=== PATIENT | male | born 1950 | race Caucasian/White ===

== ENCOUNTER 2024-02-05 17:10 | Inpatient (IN) | payer MEDICARE, OTHER ==
[~2024-02-05] VITALS: Ht 167.6 cm; Wt 73.5 kg
[2024-02-05 17:17] VITALS: BP 135/75; PULSE 95; RESP 20; TEMP 99.2; O2SAT 98
[2024-02-05 18:12] LABS: HEMATOCRIT 42.1 % (36-52); HEMOGLOBIN 14.1 g/dL (12.0-18.0); MEAN CORPUSCULAR HEMOGLOBIN 30 pg (27-31); MEAN CORPUSCULAR HGB CONC 34 g/dL (33-37); MEAN CORPUSCULAR VOLUME 89.7 fL (80-94); PLATELET COUNT (AUTO) 184 K/uL (140-450); RED CELL DISTRIBUTION WIDTH 13.8 % (11.6-13.7); WHITE BLOOD COUNT (AUTO) 11.6 K/uL (4.8-10.8)
[2024-02-05 18:18] LABS: APPEARANCE,URINE CLEAR (CLEAR); BILIRUBIN,URINE 2+ (NEGATIVE); BLOOD, URINE NEGATIVE (NEGATIVE); COLOR,URINE YELLOW (YELLOW); LEUKOCYTE ESTERASE ,URINE TRACE (NEGATIVE); NITRITE, URINE NEGATIVE (NEGATIVE); PROTEIN,URINE TRACE (NEGATIVE); UGLUCOSE NEGATIVE (NEGATIVE); UROBILINOGEN,URINE >=8.0 EU/dL (0.2 - 1)
[2024-02-05 18:29] LABS: ALANINE AMINOTRANSFERASE 347 U/L (12-78); ALBUMIN 3.6 g/dL (3.4-5.0); ALKALINE PHOSPHATASE 269 U/L (50-136); ANION GAP 13.7 (8-16); ASPARTATE AMINOTRANSFERASE 389 U/L (15-37); CALCIUM 8.8 mg/dL (8.5-10.1); CARBON DIOXIDE 24.4 mmol/L (21-32); CHLORIDE 100 mmol/L (98-107); CREATININE 1.6 mg/dL (0.6-1.3); GLUCOSE 107 mg/dL (74-106); LIPASE 54 U/L (16-77); POTASSIUM 4.1 mmol/L (3.5-5.1); SODIUM SERUM 134 mmol/L (136-145); TOTAL BILIRUBIN 2.3 mg/dL (0.0-1.0); TOTAL PROTEIN, SERUM 7.1 g/dL (6.4-8.2); UREA NITROGEN, BLOOD 18 mg/dL (7-18)
[2024-02-05 18:33] LABS: ICTOTEST NEGATIVE (NEGATIVE)
[2024-02-05 18:58] LABS: EOSINOPHILS % (MANUAL) 1 % (0-4); LYMPHOCYTES % (MANUAL) 6 % (20-46); MONOCYTES % (MANUAL) 5 % (5-12)
[2024-02-05 18:59] LABS: ANISOCYTOSIS 1+; PLATELET ESTIMATE GIANT PLATELET SEEN; POIKILOCYTOSIS 1+
[2024-02-05] MEDS: NACL 0.9% 1,000 ML IV ONE (20:56)
[2024-02-05] MEDS: KETOROLAC 30 MG/ML VIAL IVP ONE ×2 (20:57→22:04)
[2024-02-05] MEDS ORDERED: ONDANSETRON 4 MG/2 ML VIAL IVP PRN (22:20)
[2024-02-05] MEDS ORDERED: MORPHINE SULFATE 2 MG/ML SYR IVP PRN (22:20)
[2024-02-05 22:50] VITALS: PULSE 65; RESP 18; O2SAT 97
[2024-02-05] MEDS: DEXT 5% /NACL 0.9% 1,000 ML IV SCH (23:19)
[2024-02-06] VITALS: BP 128/73; PULSE 65; RESP 18; TEMP 97.2; O2SAT 97
[2024-02-06 04:00] VITALS: BP 125/71; PULSE 68; RESP 18; TEMP 97.1; O2SAT 97
[2024-02-06 06:46] LABS: BASOPHILS % (AUTO) 0.3 % (0.0-2.0); EOSINOPHILS # (AUTO) 0.1 K/uL (0-0.4); EOSINOPHILS % (AUTO) 0.7 % (0.0-4.0); HEMATOCRIT 38.8 % (36-52); HEMOGLOBIN 13.4 g/dL (12.0-18.0); LYMPHOCYTES # (AUTO) 1.4 K/uL (2.0-11.5); LYMPHOCYTES % (AUTO) 12.6 % (20.5-51.1); MEAN CORPUSCULAR HEMOGLOBIN 31 pg (27-31); MEAN CORPUSCULAR HGB CONC 35 g/dL (33-37); MONOCYTES # (AUTO) 1.1 K/uL (0.8-1.0); MONOCYTES % (AUTO) 10.6 % (1.7-9.3); NEUTROPHILS # (AUTO) 8.2 K/uL (1.8-7.7); NEUTROPHILS % (AUTO) 75.8 % (42.2-75.2); PLATELET COUNT (AUTO) 150 K/uL (140-450); RED BLOOD CELL COUNT(AUTO) 4.36 MIL/uL (4.20-6.10); RED CELL DISTRIBUTION WIDTH 13.7 % (11.6-13.7); WHITE BLOOD COUNT (AUTO) 10.8 K/uL (4.8-10.8)
[2024-02-06 07:27] LABS: CALCIUM 7.9 mg/dL (8.5-10.1); CARBON DIOXIDE 23.8 mmol/L (21-32); CHLORIDE 104 mmol/L (98-107); CREATININE 1.5 mg/dL (0.6-1.3); GLUCOSE 91 mg/dL (74-106); POTASSIUM 3.8 mmol/L (3.5-5.1); SODIUM SERUM 137 mmol/L (136-145); UREA NITROGEN, BLOOD 17 mg/dL (7-18)
[2024-02-06 07:28] LABS: ALBUMIN 3.1 g/dL (3.4-5.0); BILIRUBIN,DIRECT 1.3 mg/dL (0.0-0.3); TOTAL PROTEIN, SERUM 6.4 g/dL (6.4-8.2)
[2024-02-06 08:00] VITALS: BP 116/70; PULSE 65; PULSE 67; RESP 18; TEMP 98.4; O2SAT 97; O2SAT 98
[2024-02-06] MEDS ORDERED: KCL 20 MEQ IN 100 mL PREMIX 200 ML IV PRN (08:00)
[2024-02-06] MEDS ORDERED: oxyCODONE/APAP 5/325 MG 1 TAB TAB PO PRN (08:00)
[2024-02-06] MEDS ORDERED: ACETAMINOPHEN 325 MG TAB PO PRN (08:00)
[2024-02-06] MEDS ORDERED: guaiFENesin DM 200/20 MG-10 ML 10 ML UDC PO PRN (08:00)
[2024-02-06] MEDS ORDERED: ZOLPIDEM 5 MG TAB PO PRN (08:00)
[2024-02-06] MEDS: PANTOPRAZOLE 40 MG INJ VIAL IVP SCH ×2 (09:00)
[2024-02-06 12:00] VITALS: TEMP 98
[2024-02-06] MEDS ORDERED: SEVOFLURANE 250 ML BTL INH ONE (12:00)
[2024-02-06] MEDS: fentaNYL citrate 0.05 MG/ML VIAL ONE (12:09)
[2024-02-06] MEDS: PROPOFOL 200 MG/20 ML VIAL IV ONE (12:10)
[2024-02-06] MEDS: SUCCINYLCHOLINE CHLORIDE 200 MG/10 ML VIAL IVP ONE (12:44)
[2024-02-06] MEDS: DEXAMETHASONE 4 MG/ML VIAL ONE (12:48)
[2024-02-06] MEDS: ONDANSETRON 4 MG/2 ML VIAL ONE (12:49)
[2024-02-06] MEDS ORDERED: ONDANSETRON 4 MG/2 ML VIAL IVP PRN (12:50)
[2024-02-06] MEDS ORDERED: HYDROmorphone 1 MG/ML AMP IVP PRN (12:50)
[2024-02-06 16:00] VITALS: BP 150/76; PULSE 71; RESP 18; TEMP 98.1; O2SAT 97
[2024-02-06] MEDS: KETOROLAC 30 MG/ML VIAL IVP PRN (17:00)
[2024-02-06 20:00] VITALS: BP 144/70; PULSE 70; RESP 18; TEMP 98.3; O2SAT 96; O2SAT 98
[2024-02-06] MEDS: HYDROmorphone 1 MG/ML AMP IVP PRN (20:14)
[2024-02-06] MEDS: metroNIDAZOLE 500 MG/NS PREMIX 100 ML IV SCH (21:27)
[2024-02-06] MEDS: ONDANSETRON 4 MG/2 ML VIAL IM/IVP PRN (23:12)
[2024-02-07 04:00] VITALS: BP 142/85; PULSE 64; RESP 18; TEMP 98.3; O2SAT 96
[2024-02-07 06:39] LABS: BASOPHILS % (AUTO) 0.3 % (0.0-2.0); EOSINOPHILS % (AUTO) 0.1 % (0.0-4.0); HEMATOCRIT 40.7 % (36-52); HEMOGLOBIN 13.9 g/dL (12.0-18.0); LYMPHOCYTES % (AUTO) 7.5 % (20.5-51.1); MEAN CORPUSCULAR HEMOGLOBIN 30 pg (27-31); MEAN CORPUSCULAR HGB CONC 34 g/dL (33-37); MEAN CORPUSCULAR VOLUME 88.5 fL (80-94); MONOCYTES # (AUTO) 1.1 K/uL (0.8-1.0); MONOCYTES % (AUTO) 8.4 % (1.7-9.3); NEUTROPHILS # (AUTO) 11.1 K/uL (1.8-7.7); NEUTROPHILS % (AUTO) 83.7 % (42.2-75.2); PLATELET COUNT (AUTO) 160 K/uL (140-450); RED CELL DISTRIBUTION WIDTH 13.7 % (11.6-13.7); WHITE BLOOD COUNT (AUTO) 13.3 K/uL (4.8-10.8)
[2024-02-07 07:11] LABS: ANION GAP 14.8 (8-16); CALCIUM 8.1 mg/dL (8.5-10.1); CARBON DIOXIDE 21.1 mmol/L (21-32); CHLORIDE 103 mmol/L (98-107); CREATININE 1.3 mg/dL (0.6-1.3); GLUCOSE 145 mg/dL (74-106); POTASSIUM 3.9 mmol/L (3.5-5.1); SODIUM SERUM 135 mmol/L (136-145); UREA NITROGEN, BLOOD 18 mg/dL (7-18)
[2024-02-07 07:15] LABS: MAGNESIUM 1.7 mg/dL (1.8-2.4); PHOSPHORUS 2.7 mg/dL (2.5-4.9)
[2024-02-07] MEDS ORDERED: CALC-575 PO (07:59)
[2024-02-07 08:00] VITALS: BP 182/94; PULSE 70; PULSE 78; RESP 18; TEMP 98.2; O2SAT 96; O2SAT 98
[2024-02-07] MEDS ORDERED: LOSA-272 PO (08:32)
[2024-02-07] MEDS ORDERED: ATOR10TA PO (08:32)
[2024-02-07] MEDS ORDERED: ASPI-1822 PO (08:32)
[2024-02-07] MEDS: LOSARTAN 50 MG TAB PO SCH (09:57)
[2024-02-07 12:00] VITALS: BP 202/106; PULSE 68; RESP 18; TEMP 98; O2SAT 98
[2024-02-07] MEDS: hydrALAZINE 20 MG/ML VIAL IVP PRN (13:18)
[2024-02-07 18:51] VITALS: BP 164/83; PULSE 72; RESP 18; TEMP 98; O2SAT 97
[2024-02-08 05:31] LABS: BASOPHILS % (AUTO) 0.1 % (0.0-2.0); EOSINOPHILS % (AUTO) 0.1 % (0.0-4.0); HEMATOCRIT 39.5 % (36-52); HEMOGLOBIN 13.4 g/dL (12.0-18.0); LYMPHOCYTES # (AUTO) 0.7 K/uL (2.0-11.5); LYMPHOCYTES % (AUTO) 5.2 % (20.5-51.1); MEAN CORPUSCULAR HEMOGLOBIN 30 pg (27-31); MEAN CORPUSCULAR HGB CONC 34 g/dL (33-37); MEAN CORPUSCULAR VOLUME 88.8 fL (80-94); MONOCYTES # (AUTO) 1.3 K/uL (0.8-1.0); MONOCYTES % (AUTO) 8.9 % (1.7-9.3); NEUTROPHILS # (AUTO) 12.2 K/uL (1.8-7.7); NEUTROPHILS % (AUTO) 85.7 % (42.2-75.2); PLATELET COUNT (AUTO) 191 K/uL (140-450); RED BLOOD CELL COUNT(AUTO) 4.45 MIL/uL (4.20-6.10); WHITE BLOOD COUNT (AUTO) 14.2 K/uL (4.8-10.8)
[2024-02-08 05:42] LABS: MAGNESIUM 1.7 mg/dL (1.8-2.4)
[2024-02-08 05:44] LABS: ANION GAP 13.3 (8-16); CALCIUM 8.1 mg/dL (8.5-10.1); CARBON DIOXIDE 23.4 mmol/L (21-32); CHLORIDE 102 mmol/L (98-107); CREATININE 1.3 mg/dL (0.6-1.3); GLUCOSE 110 mg/dL (74-106); POTASSIUM 3.7 mmol/L (3.5-5.1); SODIUM SERUM 135 mmol/L (136-145); UREA NITROGEN, BLOOD 13 mg/dL (7-18)
[2024-02-08] MEDS: LOSARTAN 50 MG TAB PO SCH (09:00)
[2024-02-08 15:17] LABS: BILIRUBIN,DIRECT 0.3 mg/dL (0.0-0.3); TOTAL BILIRUBIN 1.1 mg/dL (0.0-1.0); TOTAL PROTEIN, SERUM 6.7 g/dL (6.4-8.2)
[2024-02-08 20:38] VITALS: PULSE 72; RESP 18; O2SAT 97
[2024-02-09 05:31] LABS: BASOPHILS % (AUTO) 0.3 % (0.0-2.0); EOSINOPHILS % (AUTO) 0.1 % (0.0-4.0); HEMATOCRIT 37.6 % (36-52); HEMOGLOBIN 12.6 g/dL (12.0-18.0); LYMPHOCYTES # (AUTO) 0.9 K/uL (2.0-11.5); LYMPHOCYTES % (AUTO) 5.5 % (20.5-51.1); MEAN CORPUSCULAR HEMOGLOBIN 30 pg (27-31); MEAN CORPUSCULAR HGB CONC 34 g/dL (33-37); MEAN CORPUSCULAR VOLUME 88.1 fL (80-94); MONOCYTES # (AUTO) 1.7 K/uL (0.8-1.0); MONOCYTES % (AUTO) 10.5 % (1.7-9.3); NEUTROPHILS # (AUTO) 13.7 K/uL (1.8-7.7); NEUTROPHILS % (AUTO) 83.6 % (42.2-75.2); PLATELET COUNT (AUTO) 200 K/uL (140-450); RED BLOOD CELL COUNT(AUTO) 4.26 MIL/uL (4.20-6.10); RED CELL DISTRIBUTION WIDTH 13.9 % (11.6-13.7); WHITE BLOOD COUNT (AUTO) 16.5 K/uL (4.8-10.8)
[2024-02-09 05:39] LABS: INR 1.18 (0.8-1.2); PARTIAL THROMBOPLASTIN TIME 29.9 secs (22-35.6); PROTHROMBIN TIME 12.3 secs (10.8-13.4)
[2024-02-09 06:38] LABS: ALANINE AMINOTRANSFERASE 65 U/L (12-78); ALBUMIN 2.8 g/dL (3.4-5.0); ALKALINE PHOSPHATASE 144 U/L (50-136); ANION GAP 15.6 (8-16); ASPARTATE AMINOTRANSFERASE 14 U/L (15-37); CARBON DIOXIDE 21.1 mmol/L (21-32); CHLORIDE 102 mmol/L (98-107); CREATININE 1.2 mg/dL (0.6-1.3); GLUCOSE 119 mg/dL (74-106); MAGNESIUM 1.7 mg/dL (1.8-2.4); PHOSPHORUS 1.9 mg/dL (2.5-4.9); POTASSIUM 3.7 mmol/L (3.5-5.1); SODIUM SERUM 135 mmol/L (136-145); TOTAL PROTEIN, SERUM 6.4 g/dL (6.4-8.2); UREA NITROGEN, BLOOD 13 mg/dL (7-18)
[2024-02-09] MEDS ORDERED: diphenhydrAMINE 50 MG/ML VIAL IVP PRN (07:15)
[2024-02-09] MEDS: LACTATED RINGERS 1,000 ML IV SCH (07:15)
[2024-02-09] MEDS ORDERED: MEPERIDINE 25 MG/ML SYR IVP PRN (07:15)
[2024-02-09] MEDS ORDERED: HYDROmorphone 1 MG/ML AMP IVP PRN ×2 (07:15→08:40)
[2024-02-09] MEDS ORDERED: ONDANSETRON 4 MG/2 ML VIAL IVP PRN (07:15)
[2024-02-09] MEDS ORDERED: ACETAMINOPHEN 100 ML IV SCH (07:15)
[2024-02-09] MEDS: MIDAZOLAM 2 MG/2 ML VIAL ONE (07:20)
[2024-02-09] MEDS: fentaNYL citrate 0.05 MG/ML VIAL ONE (07:20)
[2024-02-09] MEDS: ROCURONIUM 50 MG/5 ML VIAL IV ONE (07:21)
[2024-02-09] MEDS: SUGAMMADEX SODIUM 200 MG/2 ML VIAL IV ONE (07:21)
[2024-02-09] MEDS: DEXAMETHASONE 4 MG/ML VIAL ONE (07:22)
[2024-02-09] MEDS: PROPOFOL 200 MG/20 ML VIAL IV ONE (07:22)
[2024-02-09] MEDS: ONDANSETRON 4 MG/2 ML VIAL ONE (07:22)
[2024-02-09] MEDS: SUCCINYLCHOLINE CHLORIDE 200 MG/10 ML VIAL IVP ONE (07:22)
[2024-02-09 08:00] VITALS: PULSE 72; RESP 18; O2SAT 98
[2024-02-09] MEDS ORDERED: HYDROcodone/APAP 5/325 MG 1 TAB TAB PO PRN (08:40)
[2024-02-09] MEDS: BUPIVACAINE-MPF 0.25% 30 ML VIAL INJ ONE (09:04)
[2024-02-09] MEDS: LIDOCAINE/EPI 1% 1:100000 20 ML VIAL INJ ONE (09:04)
[2024-02-09] MEDS: PIPERACILLIN/TAZOBACTAM 3.375 GM in DEXTROSE 5% 50 ML IV SCH (12:56)
[2024-02-09 20:00] VITALS: PULSE 84; RESP 18; O2SAT 96
[2024-02-10 06:04] LABS: PHOSPHORUS 1.9 mg/dL (2.5-4.9)
[2024-02-10 06:06] LABS: ALANINE AMINOTRANSFERASE 93 U/L (12-78); ALBUMIN 2.4 g/dL (3.4-5.0); ALKALINE PHOSPHATASE 131 U/L (50-136); ANION GAP 13.6 (8-16); ASPARTATE AMINOTRANSFERASE 68 U/L (15-37); CALCIUM 8.3 mg/dL (8.5-10.1); CARBON DIOXIDE 22.2 mmol/L (21-32); CHLORIDE 105 mmol/L (98-107); CREATININE 1.2 mg/dL (0.6-1.3); GLUCOSE 130 mg/dL (74-106); POTASSIUM 3.8 mmol/L (3.5-5.1); SODIUM SERUM 137 mmol/L (136-145); TOTAL BILIRUBIN 0.8 mg/dL (0.0-1.0); TOTAL PROTEIN, SERUM 6.2 g/dL (6.4-8.2); UREA NITROGEN, BLOOD 11 mg/dL (7-18)
[2024-02-10 06:19] LABS: BASOPHILS % (AUTO) 0.2 % (0.0-2.0); HEMATOCRIT 37.7 % (36-52); HEMOGLOBIN 12.6 g/dL (12.0-18.0); LYMPHOCYTES % (AUTO) 5.3 % (20.5-51.1); MEAN CORPUSCULAR HEMOGLOBIN 30 pg (27-31); MEAN CORPUSCULAR HGB CONC 34 g/dL (33-37); MEAN CORPUSCULAR VOLUME 89.6 fL (80-94); MONOCYTES # (AUTO) 0.9 K/uL (0.8-1.0); MONOCYTES % (AUTO) 4.9 % (1.7-9.3); NEUTROPHILS # (AUTO) 16.9 K/uL (1.8-7.7); NEUTROPHILS % (AUTO) 89.6 % (42.2-75.2); PLATELET COUNT (AUTO) 215 K/uL (140-450); RED BLOOD CELL COUNT(AUTO) 4.21 MIL/uL (4.20-6.10); RED CELL DISTRIBUTION WIDTH 13.7 % (11.6-13.7); WHITE BLOOD COUNT (AUTO) 18.8 K/uL (4.8-10.8)
[2024-02-10 08:00] VITALS: PULSE 80; RESP 18; O2SAT 95
[2024-02-10 20:00] VITALS: PULSE 81; RESP 18; O2SAT 96
[2024-02-11 05:46] LABS: BASOPHILS # (AUTO) 0.1 K/uL (0.00-0.22); BASOPHILS % (AUTO) 0.4 % (0.0-2.0); EOSINOPHILS # (AUTO) 0.1 K/uL (0-0.4); EOSINOPHILS % (AUTO) 0.4 % (0.0-4.0); HEMATOCRIT 36.3 % (36-52); HEMOGLOBIN 12.4 g/dL (12.0-18.0); LYMPHOCYTES % (AUTO) 6.6 % (20.5-51.1); MEAN CORPUSCULAR HEMOGLOBIN 30 pg (27-31); MEAN CORPUSCULAR HGB CONC 34 g/dL (33-37); MEAN CORPUSCULAR VOLUME 88.6 fL (80-94); MONOCYTES # (AUTO) 1.5 K/uL (0.8-1.0); NEUTROPHILS # (AUTO) 12.5 K/uL (1.8-7.7); NEUTROPHILS % (AUTO) 82.6 % (42.2-75.2); PLATELET COUNT (AUTO) 244 K/uL (140-450); RED CELL DISTRIBUTION WIDTH 13.7 % (11.6-13.7); WHITE BLOOD COUNT (AUTO) 15.1 K/uL (4.8-10.8)
[2024-02-11 05:51] LABS: ANION GAP 13.5 (8-16); CALCIUM 7.9 mg/dL (8.5-10.1); CHLORIDE 100 mmol/L (98-107); CREATININE 1.3 mg/dL (0.6-1.3); GLUCOSE 108 mg/dL (74-106); POTASSIUM 3.5 mmol/L (3.5-5.1); SODIUM SERUM 134 mmol/L (136-145); UREA NITROGEN, BLOOD 16 mg/dL (7-18)
[2024-02-11 06:28] LABS: MAGNESIUM 1.6 mg/dL (1.8-2.4); PHOSPHORUS 1.9 mg/dL (2.5-4.9)
[2024-02-11 08:00] VITALS: BP 172/94; PULSE 81; PULSE 90; RESP 18; TEMP 98.6; O2SAT 94; O2SAT 96
[2024-02-11] MEDS: MAGNESIUM OXIDE 400 MG TAB PO SCH (13:39)
[2024-02-11 16:00] VITALS: BP 146/80; PULSE 96; RESP 18; TEMP 100; O2SAT 95
[2024-02-11 20:00] VITALS: BP 129/84; PULSE 84; PULSE 85; RESP 18; RESP 20; TEMP 99.9; O2SAT 95; O2SAT 98
[2024-02-11] MEDS: PIPERACILLIN/TAZOBACTAM 3.375 GM in DEXTROSE 5% 50 ML IV SCH (22:41)
[2024-02-11] MEDS: PIPERACILLIN/TAZOBACTAM 3.375 GM VIAL IV ONE (22:46)
[2024-02-12 04:00] VITALS: BP 136/85; PULSE 85; RESP 18; TEMP 98.5; O2SAT 95
[2024-02-12] MEDS: PIPERACILLIN/TAZOBACTAM 3.375 GM VIAL IV ONE (05:53)
[2024-02-12 06:13] LABS: BASOPHILS % (AUTO) 0.2 % (0.0-2.0); EOSINOPHILS # (AUTO) 0.1 K/uL (0-0.4); EOSINOPHILS % (AUTO) 0.9 % (0.0-4.0); HEMATOCRIT 37.8 % (36-52); HEMOGLOBIN 12.9 g/dL (12.0-18.0); LYMPHOCYTES # (AUTO) 1.7 K/uL (2.0-11.5); LYMPHOCYTES % (AUTO) 11.3 % (20.5-51.1); MEAN CORPUSCULAR HEMOGLOBIN 30 pg (27-31); MEAN CORPUSCULAR HGB CONC 34 g/dL (33-37); MEAN CORPUSCULAR VOLUME 88.2 fL (80-94); MONOCYTES # (AUTO) 1.8 K/uL (0.8-1.0); MONOCYTES % (AUTO) 12.2 % (1.7-9.3); NEUTROPHILS # (AUTO) 11.1 K/uL (1.8-7.7); NEUTROPHILS % (AUTO) 75.4 % (42.2-75.2); PLATELET COUNT (AUTO) 275 K/uL (140-450); RED BLOOD CELL COUNT(AUTO) 4.29 MIL/uL (4.20-6.10); RED CELL DISTRIBUTION WIDTH 13.5 % (11.6-13.7); WHITE BLOOD COUNT (AUTO) 14.7 K/uL (4.8-10.8)
[2024-02-12 06:26] LABS: ANION GAP 12.4 (8-16); CALCIUM 8.3 mg/dL (8.5-10.1); CARBON DIOXIDE 25.1 mmol/L (21-32); CHLORIDE 101 mmol/L (98-107); CREATININE 1.3 mg/dL (0.6-1.3); GLUCOSE 107 mg/dL (74-106); POTASSIUM 3.5 mmol/L (3.5-5.1); SODIUM SERUM 135 mmol/L (136-145); UREA NITROGEN, BLOOD 15 mg/dL (7-18)
[2024-02-12 06:51] LABS: MAGNESIUM 1.8 mg/dL (1.8-2.4)
[2024-02-12 08:00] VITALS: PULSE 75; RESP 20; O2SAT 100
[2024-02-12] MEDS: PIPERACILLIN/TAZOBACTAM 3.375 GM in DEXTROSE 5% 50 ML IV SCH (12:19)
[2024-02-12 16:00] VITALS: BP 129/72; PULSE 75; RESP 20; TEMP 98.6; O2SAT 99
[2024-02-12 20:00] VITALS: BP 116/70; PULSE 70; PULSE 97; RESP 20; TEMP 98.6; O2SAT 100
[2024-02-12] MEDS: POLYETHYLENE GLYCOL 17 GM/PKT PO ONE (20:55)
[2024-02-13 05:51] LABS: BASOPHILS # (AUTO) 0.3 K/uL (0.00-0.22); BASOPHILS % (AUTO) 1.6 % (0.0-2.0); EOSINOPHILS # (AUTO) 0.3 K/uL (0-0.4); EOSINOPHILS % (AUTO) 1.7 % (0.0-4.0); HEMATOCRIT 40.3 % (36-52); HEMOGLOBIN 13.7 g/dL (12.0-18.0); LYMPHOCYTES # (AUTO) 2.4 K/uL (2.0-11.5); LYMPHOCYTES % (AUTO) 14.5 % (20.5-51.1); MEAN CORPUSCULAR HEMOGLOBIN 30 pg (27-31); MEAN CORPUSCULAR HGB CONC 34 g/dL (33-37); MEAN CORPUSCULAR VOLUME 88.2 fL (80-94); MONOCYTES # (AUTO) 1.4 K/uL (0.8-1.0); MONOCYTES % (AUTO) 8.5 % (1.7-9.3); NEUTROPHILS # (AUTO) 12.4 K/uL (1.8-7.7); NEUTROPHILS % (AUTO) 73.7 % (42.2-75.2); PLATELET COUNT (AUTO) 316 K/uL (140-450); RED BLOOD CELL COUNT(AUTO) 4.57 MIL/uL (4.20-6.10); RED CELL DISTRIBUTION WIDTH 13.9 % (11.6-13.7); WHITE BLOOD COUNT (AUTO) 16.8 K/uL (4.8-10.8)
[2024-02-13 06:15] LABS: ANION GAP 17.1 (8-16); CALCIUM 8.6 mg/dL (8.5-10.1); CARBON DIOXIDE 21.6 mmol/L (21-32); CHLORIDE 100 mmol/L (98-107); CREATININE 1.4 mg/dL (0.6-1.3); GLUCOSE 114 mg/dL (74-106); POTASSIUM 3.7 mmol/L (3.5-5.1); SODIUM SERUM 135 mmol/L (136-145); UREA NITROGEN, BLOOD 16 mg/dL (7-18)
[2024-02-13 06:39] LABS: MAGNESIUM 1.9 mg/dL (1.8-2.4); PHOSPHORUS 3.3 mg/dL (2.5-4.9)
[2024-02-13 08:00] VITALS: BP 115/68; PULSE 70; PULSE 90; RESP 19; RESP 20; TEMP 98.1; O2SAT 100
[2024-02-13] MEDS: NACL 0.9% 1,000 ML IV SCH (10:03)
[2024-02-13 16:00] VITALS: BP 122/68; PULSE 68; RESP 18; TEMP 97.9; O2SAT 100
[2024-02-13 20:00] VITALS: RESP 20; O2SAT 100
[2024-02-14 04:00] VITALS: BP 134/77; PULSE 80; RESP 16; TEMP 97.2; O2SAT 97
[2024-02-14 06:19] LABS: ALANINE AMINOTRANSFERASE 52 U/L (12-78); ALBUMIN 2.4 g/dL (3.4-5.0); ALKALINE PHOSPHATASE 122 U/L (50-136); ANION GAP 15.6 (8-16); ASPARTATE AMINOTRANSFERASE 21 U/L (15-37); CALCIUM 8.5 mg/dL (8.5-10.1); CARBON DIOXIDE 22.2 mmol/L (21-32); CHLORIDE 101 mmol/L (98-107); CREATININE 1.4 mg/dL (0.6-1.3); GLUCOSE 97 mg/dL (74-106); PHOSPHORUS 3.4 mg/dL (2.5-4.9); POTASSIUM 3.8 mmol/L (3.5-5.1); SODIUM SERUM 135 mmol/L (136-145); TOTAL BILIRUBIN 1.1 mg/dL (0.0-1.0); TOTAL PROTEIN, SERUM 6.4 g/dL (6.4-8.2); UREA NITROGEN, BLOOD 15 mg/dL (7-18)
[2024-02-14 06:20] LABS: BASOPHILS # (AUTO) 0.1 K/uL (0.00-0.22); BASOPHILS % (AUTO) 0.6 % (0.0-2.0); EOSINOPHILS # (AUTO) 0.3 K/uL (0-0.4); EOSINOPHILS % (AUTO) 2.3 % (0.0-4.0); HEMATOCRIT 36.1 % (36-52); HEMOGLOBIN 12.4 g/dL (12.0-18.0); LYMPHOCYTES % (AUTO) 14.6 % (20.5-51.1); MEAN CORPUSCULAR HEMOGLOBIN 31 pg (27-31); MEAN CORPUSCULAR HGB CONC 34 g/dL (33-37); MEAN CORPUSCULAR VOLUME 88.7 fL (80-94); MONOCYTES # (AUTO) 1.2 K/uL (0.8-1.0); MONOCYTES % (AUTO) 8.8 % (1.7-9.3); NEUTROPHILS # (AUTO) 9.9 K/uL (1.8-7.7); NEUTROPHILS % (AUTO) 73.7 % (42.2-75.2); PLATELET COUNT (AUTO) 341 K/uL (140-450); RED BLOOD CELL COUNT(AUTO) 4.07 MIL/uL (4.20-6.10); RED CELL DISTRIBUTION WIDTH 13.4 % (11.6-13.7); WHITE BLOOD COUNT (AUTO) 13.5 K/uL (4.8-10.8)
[2024-02-14 08:00] VITALS: RESP 20; O2SAT 100
[2024-02-14 12:00] VITALS: BP 134/77; PULSE 80; RESP 20; TEMP 97.2; O2SAT 100
[2024-02-14 20:00] VITALS: BP 113/56; PULSE 78; RESP 18; RESP 8; TEMP 96.3; O2SAT 96
[2024-02-15 04:00] VITALS: BP 116/74; PULSE 70; RESP 19; TEMP 97.4; O2SAT 98
[2024-02-15 05:35] LABS: BASOPHILS # (AUTO) 0.1 K/uL (0.00-0.22); BASOPHILS % (AUTO) 0.6 % (0.0-2.0); EOSINOPHILS # (AUTO) 0.3 K/uL (0-0.4); HEMATOCRIT 36.7 % (36-52); HEMOGLOBIN 12.5 g/dL (12.0-18.0); LYMPHOCYTES # (AUTO) 1.8 K/uL (2.0-11.5); LYMPHOCYTES % (AUTO) 15.5 % (20.5-51.1); MEAN CORPUSCULAR HEMOGLOBIN 30 pg (27-31); MEAN CORPUSCULAR HGB CONC 34 g/dL (33-37); MEAN CORPUSCULAR VOLUME 88.3 fL (80-94); MONOCYTES % (AUTO) 8.9 % (1.7-9.3); NEUTROPHILS # (AUTO) 8.2 K/uL (1.8-7.7); PLATELET COUNT (AUTO) 388 K/uL (140-450); RED BLOOD CELL COUNT(AUTO) 4.16 MIL/uL (4.20-6.10); RED CELL DISTRIBUTION WIDTH 13.7 % (11.6-13.7); WHITE BLOOD COUNT (AUTO) 11.4 K/uL (4.8-10.8)
[2024-02-15 05:56] LABS: ANION GAP 13.5 (8-16); CALCIUM 8.8 mg/dL (8.5-10.1); CARBON DIOXIDE 24.3 mmol/L (21-32); CHLORIDE 100 mmol/L (98-107); CREATININE 1.4 mg/dL (0.6-1.3); GLUCOSE 106 mg/dL (74-106); POTASSIUM 3.8 mmol/L (3.5-5.1); SODIUM SERUM 134 mmol/L (136-145); UREA NITROGEN, BLOOD 13 mg/dL (7-18)
[2024-02-15 08:00] VITALS: BP 142/77; PULSE 68; PULSE 70; RESP 18; TEMP 97.8; O2SAT 96; O2SAT 98
[2024-02-15] MEDS ORDERED: LEVO-481 PO (10:24)
[2024-02-15] MEDS ORDERED: METR-435 PO (10:24)
[2024-02-15 16:00] VITALS: BP 118/69; PULSE 70; RESP 18; TEMP 98.1; O2SAT 96
[2024-02-15 18:13] VITALS: BP 118/69; PULSE 70; RESP 18; TEMP 98.1
== END 2024-02-15 19:43 | disposition home health service (06) | DRG 417 ==
LOC: MED 17:10 → MTU 22:28 → MMU 02-07 16:00
PROVIDERS: ADMIT Student in an Organized Health Care Education/Training Program; ATTEND Student in an Organized Health Care Education/Training Program
PROC: 0F798ZZ Dilation of Common Bile Duct, Via Natural or Artificial Opening Endoscopic (ICD-10-PCS; principal; 2024-02-06 12:00)
PROC: 0FT44ZZ Resection of Gallbladder, Percutaneous Endoscopic Approach (ICD-10-PCS; 2024-02-09)
DX: K80.70 Calculus of gallbladder and bile duct without cholecystitis without obstruction (principal); K85.80 Other acute pancreatitis without necrosis or infection; N17.0 Acute kidney failure with tubular necrosis; E87.1 Hypo-osmolality and hyponatremia; K91.89 Other postprocedural complications and disorders of digestive system; D72.829 Elevated white blood cell count, unspecified; E11.9 Type 2 diabetes mellitus without complications; I10 Essential (primary) hypertension; K57.30 Diverticulosis of large intestine without perforation or abscess without bleeding; Z90.79 Acquired absence of other genital organ(s); Z79.899 Other long term (current) drug therapy; Y83.8 Other surgical procedures as the cause of abnormal reaction of the patient, or of later complication, without mention of misadventure at the time of the procedure
CPT/HCPCS: 36415; 71045; 74330; 76705; 78445; 80048; 80053; 80076; 81003; 83690; 83735; 84100; 84484; 85025; 85610; 85730; 87040; 87081; 87086; 88304; 93005; 96361; 96374; 97110; 97116; 97163-GP; 97530; 99285; A9510; C1713; C1727; J0330; J0360; J0696; J1100; J1170; J1885; J2001; J2250; J2405; J2470; J2543; J2704; J3010; J3490; J7030; J7060; Q0092; Q9967